=== PATIENT | male | born 1990 | race Caucasian/White ===

== ENCOUNTER 2020-12-19 14:17 | Emergency (ER) | payer BC ==
[~2020-12-19] VITALS: Ht 185.4 cm; Wt 87.9 kg
--- NOTE | 2020-12-19 16:55 | PHYS DOC ---
General Adult EDM: Chief Complaint: FOOT INJURY PAIN HPI: HPI: Patient is a 30 year old 30-year-old male presents to the emergency department with complaints of a fractured left fifth metatarsal, patient states he was sent here by the urgent care provider he seen today so that he can have surgery on his foot. Patient states he was told an orthopedic surgeon would be here for him to see. Patient states that yesterday afternoon he was walking down a hill and his foot slipped into a hole and bent his foot in a way that made his fourth and fifth toe have pain. Patient states he still had pain today and went to urgent care, had an x-ray performed, was told he had a displaced fifth metatarsal fracture, was placed in a cam boot, and was sent to the ER for surgery. Patient has a disc copy of his x-ray. Patient denies any pain or discomfort at this time, denies numbness or tingling, states he is using his crutches with moderate weightbearing with a cam boot. 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 Patient denies any other physical complaints or physical concerns. Review of Systems: Review of Systems: 14 body systems of review of systems have been reviewed. See HPI for pertinent positives and negative responses, otherwise all other systems are negative, nonpertinent or noncontributory. Constitutional: Negative except as outlined in HPI above. Skin: Negative except as outlined in HPI above. Eyes: Negative except as outlined in HPI above. HENT: Negative except as outlined in HPI above. Respiratory: Negative except as outlined in HPI above. Cardiovascular: Negative except as outlined in HPI above. GI: Negative except as outlined in HPI above. : Negative except as outlined in HPI above. Musculoskeletal: Negative except as outlined in HPI above. Integument: Negative except as outlined in HPI above. Neurologic: Negative except as outlined in HPI above. Endocrine: Negative except as outlined in HPI above. Lymphatic: Negative except as outlined in HPI above. Psychiatric: Negative except as outlined in HPI above. Heart Score: C/O Chest Pain: No Risk Factors: Risk Factors: DM, Current or recent (<one month) smoker, HTN, HLP, family history of CAD, obesity. Risk Scores: Score 0 - 3: 2.5% MACE over next 6 weeks - Discharge Home Score 4 - 6: 20.3% MACE over next 6 weeks - Admit for Clinical Observation Score 7 - 10: 72.7% MACE over next 6 weeks - Early Invasive Strategies Allergies: Allergies: Allergies Coded Allergies Type Severity Reaction Last Updated Verified No Known Drug Allergies 12/19/20 No Physical Exam: PE: Constitutional: Well developed, well nourished, no acute distress, non-toxic ap pearance. 30-year-old male in no apparent distress. Patient had cam boot removed by ED staff prior to physical examination. HENT: Normocephalic, atraumatic. Eyes: Conjunctiva normal, no discharge. Neck: Normal range of motion, no stridor. Cardiovascular: No cyanosis appreciated, distal cap refill less than 2 seconds. Lungs & Thorax: Patient is in no respiratory distress, no audible adventitious lung sounds appreciated. Abdomen: Nontender, no abnormalities noted. Skin: Warm, dry, no erythema, no rash. Back: No tenderness, no deformities. Extremities: No tenderness, no cyanosis, no clubbing, ROM intact, no edema. Except for left foot, mild swelling lateral aspect along fifth metatarsal without bruising, mild ecchymosis on ventral aspect foot near second third metatarsal, satisfactory movement of all toes, distal cap refill less than 2 seconds, complains of mild pain with palpation, no crepitus appreciated, no edema appreciated, skin is intact. Neurologic: Alert and oriented X 3, normal motor function, normal sensory function, no focal deficits noted. Psychologic: Affect normal, judgement normal, mood normal. EKG: EKG: [] Radiology/Procedures: Radiology/Procedures: [] Course & Med Decision Making: Course & Med Decision Making Pertinent Labs and Imaging studies reviewed. (See chart for details) 30-year-old male, vital signs reviewed, presents emergency department for evaluation of fracture of left fifth metatarsal. Physical examination consistent with patient's complaint of fracture and description of events. 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 Discussed with patient need to re x-ray, patient has refused this as patient feels there is not a need, patient feels he will be re x-rayed in an orthopedic office when he has his appointment. Patient is currently in no pain. Patient was sent here by urgent care provider for orthopedic evaluation. Discussed with patient with these injuries orthopedic specialty will see as outpatient in office. Patient is amendable to this plan. I called and discussed patient case with software support specialist Prabhakar Seo who recommended patient be placed in a posterior short leg OCL splint nonweightbearing, ice and elevation, crutch use, call his office tomorrow for appointment to be seen later this week. Discussed Dr. Seo's recommendations with patient, patient is amenable to this plan. Patient is asking for work excuse. OCL splint ordered, ice pack, elevation, patient is using his own crutches. Evaluated posterior short leg OCL splint placed by ED staff, satisfactory placement, neurovascular intact, patient denies any pain or discomfort with the splint placement. Will have patient sign partial refusal of care related to x-ray refusal. Patient gave verbal understanding of discharge home instructions, follow-up with orthopedics this week, return to ER precautions and concerns, remained hemodynamically stable, in no apparent distress, nontoxic in appearance at discharge time, patient was discharged without incident. Dragon Disclaimer: Dragon Disclaimer: This electronic medical record was generated, in whole or in part, using a voice recognition dictation system. Departure Departure Impression: Primary Impression: Injury of left foot Qualified Codes: S99.922A - Unspecified injury of left foot, initial encounter Disposition: HOME / SELF CARE / HOMELESS Condition: GOOD Referrals: ADONAY PATEL (PCP) Patient Instructions: Cast or Splint Care, Crutch Use Additional Instructions: You were seen here today for a fracture of your left foot fifth metatarsal. You had a CD disc copy of your x-rays, I was unable to upload this disc for imaging of your x-rays. I recommended an x-ray to view severity of fracture, you have refused this as the orthopedic surgeon may re x-ray when you see him in his office this week, I have reviewed your case with the orthopedic surgeon Dr. Prabhakar Seo who recommended a posterior OCL splint, nonweightbearing, crutch use only, ice and elevation, please call his office tomorrow morning for an appointment to be seen this week. Dr. Allan is located at [address] [place] [address], [facility], his office telephone number is area code [phone]. Please call tomorrow for an appointment. As we discussed please ice 30 minutes on and 30 minutes off and elevate over the next 36 to 72 hours. Please return to the emergency department for decreased sensation, discoloration of toes, swelling of the toes, pain unrelieved with [id number] Tylenol or Motrin, or other concerns. Thank you for visiting our Emergency Department. It was a pleasure taking care of you today in the emergency department and we appreciate you trusting us with your care. If any additional problems come up don't hesitate to return to visit us. Please follow up with your primary care provider so they can plan additional care if needed and know about the problem that you had. If symptoms worsen come back to the Emergency Department. Any concerning symptoms that start such as chest pain, shortness of air, weakness or numbness on one side of the body, running high fevers or any other concerning symptoms return to the ER. EMERGENCY DEPARTMENT GENERAL DISCHARGE INSTRUCTIONS Thank you for coming to [facility] Emergency Department (ED) today and trusting us with you care. We trust that you had a positive experience in our Emergency Department. If you wish to speak to the department management, you may call the Director at [phone]. YOUR FOLLOW UP INSTRUCTIONS ARE FOLLOWS: 1. Do you have a private Doctor? If you do not have a private doctor, please ask for a resource list of physicians or clinics that may be able to assist you with fol low up care. 2. The Emergency Physicain has interpreted your x-rays. The X-Ray specialist will also review them. If there is a change in the findings, you will be notified in 48 hours when at all possible. 3. A lab test or culture has been done, your results will be reviewed and you will be notified if you need a change in treatment. ADDITIONAL INSTRUCTIONS AND INFORMATION: 1. Your care today has been supervised by a physician who is specially trained in emergency care. Many problems require more than one evaluation for a complete diagnosis and treatment. We recommend that you schedule your follow up appointment as r ecommended to ensure complete treatment of you illness or injury. If you are unable to obtain follow up care and continue to have a problem, or if your condition worsens, we recommend that you return to the ED. 2. We are not able to safely determine your condition over the phone nor are we able to give sound medical advice over the phone. For these safety reasons, if you call for medical advice we will ask you to come to the ED for further evaluation. 3. If you have any questions regarding these discharge instructions please call the ED at [phone]. SAFETY INFORMATION: In the interest of safety, wellness, and injury prevention; we encourage you to wear your sealbelt, if you smoke; quite smoking, and we encourage family to use a protective helmet for bicycling and other sporting events that present an increased risk for head injury. IF YOUR SYMPTOMS WORSEN OR NEW SYMPTOMS DEVELOP, OR YOU HAVE CONCERNS ABOUT YOUR CONDITION; OR IF YOUR CONDITION WORSENS WHILE YOU ARE WAITING FOR YOUR FOLLOW UP APPOINTMENT; EITHER CONTACT YOUR PRIMARY CARE DOCTOR, THE PHYSICIAN WHOSE NAME AND NUMBER YOU WERE GIVEN, OR RETURN TO THE ED IMMEDIATELY. REYNALDO GARIBAY APRN Dec 19, 2020 16:55
[2020-12-19 18:36] VITALS: BP 123/66
== END 2020-12-19 18:36 | disposition home or self-care (01) ==
LOC: ER 14:17
DX: S99.922A Unspecified injury of left foot, initial encounter (principal); W01.0XXA Fall on same level from slipping, tripping and stumbling without subsequent striking against object, initial encounter; Y93.01 Activity, walking, marching and hiking; Y92.89 Other specified places as the place of occurrence of the external cause; Y99.8 Other external cause status
CPT/HCPCS: 29515; 99284